=== PATIENT | female | born 1980 | race Caucasian/White ===

== ENCOUNTER 2025-02-22 11:21 | Observation (INO) | payer OTHER, SELFPAY ==
[2025-02-22] VITALS (7 sets, daily range): BP systolic 96–110; BP diastolic 48–62; PULSE 76–93; RESP 16–18; TEMP 36.7–38.2; O2SAT 95–99; BMI 27.4; BMI 34.5
--- NOTE | ~2025-02-22 | CT_ITS ---
CLINICAL HISTORY: pulmonary mass CT chest with contrast Comparison: CR - XR CHEST 2V - 02/22/25 13:22 EST Findings: The heart is normal size. No pericardial effusion. Thoracic aorta normal in size with no aneurysm. Airspace opacity in right middle lobe. Multifocal airspace opacities in the right lower lobe and minimal focal airspace opacity in the lingula. Right hilar adenopathy likely reactive. No pleural effusion or pneumothorax. Thyroid and thoracic esophagus within normal limits. The visualized upper abdomen demonstrate no acute findings. 5 mm hypodense lesion in the liver anteriorly which is too small to be fully characterized. No acute fractures. IMPRESSION: 1. Multifocal airspace opacities in the right lower lobe, airspace opacity in right middle lobe and minimally in the lingula most suggestive of multifocal pneumonia. Follow-up recommended until resolution. 2. Right hilar adenopathy likely reactive. This document has been electronically signed by: Radha Barclay MD on 02/22/2025 18:33:39
--- NOTE | ~2025-02-22 | XR_ITS ---
CLINICAL HISTORY: cough 2 view chest x-ray Comparison: None provided Findings: Normal size heart. There is an approximately 6 cm airspace opacity in right perihilar region/right upper lobe which on the frontal view appears rounded and masslike and less masslike on the lateral view. No pleural effusion or pneumothorax. No acute fracture. IMPRESSION: 1. Airspace opacity in right perihilar region/right upper lobe which may represent pneumonia. However pulmonary mass not excluded. Clinical correlation for pneumonia recommended in either short-term follow-up chest x-ray after appropriate treatment to document complete resolution, or follow-up CT chest with IV contrast should be obtained. This document has been electronically signed by: Radha Barclay MD on 02/22/2025 15:14:28
--- NOTE | 2025-02-22 11:23 | ED.GENADULT ---
HPI - General Adult General Chief complaint: General Medical Stated complaint: fever chills body aches Time Seen by Provider: 02/22/25 11:40 Related Data Home Medications ?Medication ?Instructions ?Recorded ?Confirmed nitrofurantoin 1 cap PO BID 02/22/25 monohydrate/macrocrystals 100 mg capsule Allergies Allergy/AdvReac Type Severity Reaction Status Date / Time No Known Allergies Allergy Verified 02/22/25 11:25 [facility], [facility] Social History Social History Smoked in Last 30 Days: No Use of substances other than those prescribed or required for medical reasons: No Advance Directives: No Advance Directives Information Provided: No Do you have a plan to hurt others: No Plan Physical Exam ED Vital Signs: Vital Signs - 24 hr 02/22/25 11:23 02/22/25 11:46 02/22/25 12:17 Temperature 98.1 F 98.1 F 98.4 F Pulse Rate 83 83 76 Respiratory Rate 18 18 16 Blood Pressure 110/48 L 110/48 L 98/56 L Pulse Oximetry 98 98 98 Oxygen Delivery Method Room Air Room Air Room Air 02/22/25 14:20 Temperature 98.4 F Pulse Rate 76 Respiratory Rate 16 Blood Pressure 104/59 L Pulse Oximetry 97 Oxygen Delivery Method Room Air BMI result Body Mass Index 27.4 Course Course Course Narrative: This is a Rapid Medical Examination (RME) performed by Marilia Mejia PA-C in triage. Full HPI, ROS, assessment and treatment plan per primary provider in the Main ED. Hx: 44 yo F here from for eval of feeling generally unwell. sx of UTI began 6 days ago - saw OBGYN two days later, prescribed macrobid. having fever (TMAX 102.7 last night) chills and myalgias. saw PCP yesterday, had neg covid/flu swabs. seen at today - noted to be hypotensive 89/62 and tachycardic. sent to our ED for further work up. reports discomfort with urinating, no back pain. Plan: labs, UA Reevaluation(s) Reevaluation #1: This is a duplicate note. please see dr. ovalle's completed note regarding patient's visit on 02/22/25. Medications Administered Discontinued Medications Generic Name Dose Route Start Last Admin Trade Name Freq PRN Reason Stop Dose Admin Sodium Chloride 1,000 mls @ 999 mls/hr 02/22/25 12:00 02/22/25 13:57 Ns IVCONT 02/22/25 13:00 Infused .Q1H1M WILL Infusion Sodium Chloride 1,000 mls @ 999 mls/hr 02/22/25 12:00 02/22/25 13:57 Ns IVCONT 02/22/25 13:00 Infused .Q1H1M WILL Infusion Ceftriaxone Sodium 1 gm/ 50 mls @ 100 mls/hr 02/22/25 12:41 02/22/25 13:57 Sodium Chloride IV 02/22/25 13:10 Infused ONCE ONE Infusion Doxycycline Hyclate 100 mg/ 250 mls @ 166.67 mls/hr 02/22/25 13:34 02/22/25 13:52 Sodium Chloride IV 02/22/25 15:03 166.67 mls/hr ONCE ONE Administration Medical Decision Making Lab Data 02/22/25 11:43 02/22/25 11:43 Labs: Lab Results 02/22/25 02/22/25 Range/Units 11:43 12:49 WBC 7.2 (4.8-10.8) X10*3/uL RBC 4.74 (4.20-5.50) X10*6/uL Hgb 14.2 (12.0-16.0) g/dl Hct 42.0 (37.0-47.0) % MCV 88.6 (80.0-98.0) fL MCH 30.0 (27.0-33.0) pg MCHC 33.8 (31.0-35.0) g/dl RDW 12.9 (11.0-16.0) % Plt Count 187 (160-400) X10*3/uL MPV 9.9 (9.4-12.3) fL Immature Gran % (Auto) 0.3 (0.0-0.4) % Neut % (Auto) 83.4 H (45-73) % Lymph % (Auto) 10.2 L (20-40) % [place] % (Auto) 5.7 (2-11) % Eos % (Auto) 0.1 (0-4) % Baso % (Auto) 0.3 (0-2) % Lymph # (Auto) 0.7 L (1.2-4.9) X10*3/uL [place] # (Auto) 0.4 (0.1-1.2) X10*3/uL Eos # (Auto) 0.0 (0.0-0.4) X10*3/uL Baso # (Auto) 0.0 (0.0-0.2) X10*3/uL Abs Immat Gran (auto) 0.02 (0.00-0.03) X10*3/uL Absolute Neuts (auto) 6.0 (2.0-8.3) x10*3/uL Absolute Nucleated RBC 0.000 (0.0-0.012) X10*3/uL Nucleated RBC % (auto) 0.0 (0.0-0.2) /100WBC Sodium 135 (135-145) mmol/L Potassium 3.7 (3.3-5.1) mmol/L Chloride 106 (96-108) mmol/L Carbon Dioxide 20 L (22-29) mmol/L Anion Gap 13 (12-20) BUN 9 (9-16) mg/dL Creatinine 0.86 (0.5-1.4) mg/dL Estim Creat Clear Calc 85.7 Estimated GFR > 60 Random Glucose 105 (60-115) mg/dL Lactic Acid 1.0 (0.5-2.0) mmol/L Calcium 8.9 (8.4-10.2) mg/dL Magnesium 2.2 (1.6-2.6) mg/dL Total Bilirubin 0.4 (0.0-1.0) mg/dL AST 25 (5-31) U/L ALT 18 (0-31) U/L Alkaline Phosphatase 59 (39-117) U/L Total Protein 7.7 (6.5-8.0) g/dL Albumin 4.2 (3.5-5.0) g/dL Urine Color Yellow Urine Appearance Cloudy Urine pH 5.5 (5.0-9.0) Ur Specific [place] 1.015 (1.005-1.025) Urine Protein Trace (Neg-Trace) mg/dL Urine Glucose (UA) Negative (Negative) mg/dL Urine Ketones 15 (Negative) mg/dL Urine Blood Negative (Negative) Urine Nitrite Negative (Negative) Ur Leukocyte Esterase Trace H (Negative) Urine RBC 0-2 (0-2) /HPF Urine WBC 0-5 (0-5) /HPF Ur Squamous Epith Cells 0-2 (0-2) /HPF Urine Bacteria None Seen (None Seen) Hyaline Casts 0-2 (0-2) /LPF Influenza Type A (PCR) NEGATIVE (Negative) Influenza Type B (PCR) NEGATIVE (Negative) RSV RNA Qual (PCR) NEGATIVE (Negative) SARS-CoV-2 RNA (RT-PCR) NEGATIVE (Negative) Discharge Plan Discharge Clinical Impression: Community acquired pneumonia Qualifiers: Laterality: right Lung location: middle lobe of lung Qualified Code(s): J18.9 - Pneumonia, unspecified organism Patient Disposition: Admitted As Inpatient Print Language: Haitian
[2025-02-22 11:49] LABS: Hematocrit 42.0 % (37.0-47.0); Hemoglobin 14.2 g/dl (12.0-16.0); Imm Gran Abs Auto 0.02 X10*3/uL (0.00-0.03); Imm Gran Pct Auto 0.3 % (0.0-0.4); Lymphocytes Absolute Auto 0.7 X10*3/uL (1.2-4.9); MANUAL DIFF FLAG NO; Mean Corpuscular HGB Conc 33.8 g/dl (31.0-35.0); Mean Corpuscular Hemoglobin 30.0 pg (27.0-33.0); Mean Corpuscular Volume 88.6 fL (80.0-98.0); NRBC Abs Auto 0.000 X10*3/uL (0.0-0.012); NRBC Pct Auto 0.0 /100WBC (0.0-0.2); Platelet Count 187 X10*3/uL (160-400); Red Blood Count 4.74 X10*6/uL (4.20-5.50); White Blood Count 7.2 X10*3/uL (4.8-10.8)
--- NOTE | 2025-02-22 11:56 | ED_ITS ---
HPI - General Adult General Chief complaint: General Medical Stated complaint: fever chills body aches Time Seen by Provider: 02/22/25 11:40 Source: patient Mode of arrival: ambulatory Limitations: no limitations History of Present Illness HPI narrative: This is a 44 years old female was referred to us by the urgent care because low blood pressure of the urgent care. Patient has been having UTI symptoms she was started the Macrobid by she has been having a persistent fever and chills. She went to the urgent care the BP was low therefore she was referred to us Onset (ago): day(s) (4) Radiation: non-radiation Severity: moderate Quality: burning Relieving factors: none Exacerbating factors: none Associated symptoms: denies other symptoms Related Data Home Medications ?Medication ?Instructions ?Recorded ?Confirmed nitrofurantoin 1 cap PO BID 02/22/25 monohydrate/macrocrystals 100 mg capsule Allergies Allergy/AdvReac Type Severity Reaction Status Date / Time No Known Allergies Allergy Verified 02/22/25 11:25 Review of Systems 2 Constitutional: Constitutional: Reports no additional constitutional complaints Cardiovascular: Cardiovascular: Reports no additional cardiovascular complaints Musculoskeletal: Musculoskeletal: Reports no additional musculoskeletal complaints [facility] Past Medical History Attestation statement: The following information was validated with the patient. [facility] Narrative: Denies any major medical Medical History (Updated 02/22/25 @ 15:10 by Missy Ridley NP) Anxiety Surgical History (Updated 02/22/25 @ 15:11 by Missy Ridley NP) H/O knee surgery Family History Family History (Updated 02/22/25 @ 15:10 by Missy Ridley NP) Mother Pancreatic cancer Social History Social History Household Members: Spouse Patient Tobacco Use Status: Never used Tobacco Physical Exam ED Exam Exam: No acute distress Vital Signs: Vital Signs - 24 hr 02/22/25 11:23 02/22/25 11:46 02/22/25 12:17 Temperature 98.1 F 98.1 F 98.4 F Pulse Rate 83 83 76 Respiratory Rate 18 18 16 Blood Pressure 110/48 L 110/48 L 98/56 L Pulse Oximetry 98 98 98 Oxygen Delivery Method Room Air Room Air Room Air 02/22/25 14:20 Temperature 98.4 F Pulse Rate 76 Respiratory Rate 16 Blood Pressure 104/59 L Pulse Oximetry 97 Oxygen Delivery Method Room Air BMI result Body Mass Index 27.4 Const General: cooperative Nutritional Appearance: well nourished Orientation/consciousness: patient oriented x3 Limitations: no limitations HENMT Head: Yes normal to inspection General nose exam: Normal external nose present Neck Neck: Yes normal visual inspection Chest Chest palpation & inspection: normal inspection of the chest Resp Effort & Inspection: normal respiratory effort Cardio Jugular venous distension: no JVD GI Inspection: Yes normal to inspection Palpation (GI): Soft to palpation, not firm and nontender Auscultation: normal bowel sounds General: Yes no CVA tenderness Back/Spine/Pelvis Back: no CVA tenderness Skin General skin exam: no rashes or lesions noted and elasticity normal Lesions: no lesions Rashes: no rashes Neuro General: patient oriented x3 Medications Administered Discontinued Medications Generic Name Dose Route Start Last Admin Trade Name Freq PRN Reason Stop Dose Admin Sodium Chloride 1,000 mls @ 999 mls/hr 02/22/25 12:00 02/22/25 13:57 Ns IVCONT 02/22/25 13:00 Infused .Q1H1M WILL Infusion Sodium Chloride 1,000 mls @ 999 mls/hr 02/22/25 12:00 02/22/25 13:57 Ns IVCONT 02/22/25 13:00 Infused .Q1H1M WILL Infusion Ceftriaxone Sodium 1 gm/ 50 mls @ 100 mls/hr 02/22/25 12:41 02/22/25 13:57 Sodium Chloride IV 02/22/25 13:10 Infused ONCE ONE Infusion Doxycycline Hyclate 100 mg/ 250 mls @ 166.67 mls/hr 02/22/25 13:34 02/22/25 13:52 Sodium Chloride IV 02/22/25 15:03 166.67 mls/hr ONCE ONE Administration Medical Decision Making Medical Decision Making MDM Narrative: Patient was sent here by the urgent care because of low blood pressure we will obtain blood work blood culture lactic acid administer IV fluids check the UA again 15:11 the clinical picture is consistent with a right middle lobe pneumonia, she had a fever, she was hypotensive in the urgent care she is better after IV fluids we will administer IV antibiotic started blood culture done Differential Diagnosis Differential Diagnoses: The differential diagnosis associated with the presentation includes UTI/pneumonia/dehydration Admission/Observation Consideration of admission/observation: Escalation of care including admission/observation considered Consult Healthcare Provider Management of the patient was discussed with: Hospitalist Lab Data MDM Lab Attestation statement: I reviewed the patient's lab results. 02/22/25 11:43 02/22/25 11:43 Labs: Lab Results 02/22/25 02/22/25 Range/Units 11:43 12:49 WBC 7.2 (4.8-10.8) X10*3/uL RBC 4.74 (4.20-5.50) X10*6/uL Hgb 14.2 (12.0-16.0) g/dl Hct 42.0 (37.0-47.0) % MCV 88.6 (80.0-98.0) fL MCH 30.0 (27.0-33.0) pg MCHC 33.8 (31.0-35.0) g/dl RDW 12.9 (11.0-16.0) % Plt Count 187 (160-400) X10*3/uL MPV 9.9 (9.4-12.3) fL Immature Gran % (Auto) 0.3 (0.0-0.4) % Neut % (Auto) 83.4 H (45-73) % Lymph % (Auto) 10.2 L (20-40) % [place] % (Auto) 5.7 (2-11) % Eos % (Auto) 0.1 (0-4) % Baso % (Auto) 0.3 (0-2) % Lymph # (Auto) 0.7 L (1.2-4.9) X10*3/uL [place] # (Auto) 0.4 (0.1-1.2) X10*3/uL Eos # (Auto) 0.0 (0.0-0.4) X10*3/uL Baso # (Auto) 0.0 (0.0-0.2) X10*3/uL Abs Immat Gran (auto) 0.02 (0.00-0.03) X10*3/uL Absolute Neuts (auto) 6.0 (2.0-8.3) x10*3/uL Absolute Nucleated RBC 0.000 (0.0-0.012) X10*3/uL Nucleated RBC % (auto) 0.0 (0.0-0.2) /100WBC Sodium 135 (135-145) mmol/L Potassium 3.7 (3.3-5.1) mmol/L Chloride 106 (96-108) mmol/L Carbon Dioxide 20 L (22-29) mmol/L Anion Gap 13 (12-20) BUN 9 (9-16) mg/dL Creatinine 0.86 (0.5-1.4) mg/dL Estim Creat Clear Calc 85.7 Estimated GFR > 60 Random Glucose 105 (60-115) mg/dL Lactic Acid 1.0 (0.5-2.0) mmol/L Calcium 8.9 (8.4-10.2) mg/dL Magnesium 2.2 (1.6-2.6) mg/dL Total Bilirubin 0.4 (0.0-1.0) mg/dL AST 25 (5-31) U/L ALT 18 (0-31) U/L Alkaline Phosphatase 59 (39-117) U/L Total Protein 7.7 (6.5-8.0) g/dL Albumin 4.2 (3.5-5.0) g/dL Urine Color Yellow Urine Appearance Cloudy Urine pH 5.5 (5.0-9.0) Ur Specific [place] 1.015 (1.005-1.025) Urine Protein Trace (Neg-Trace) mg/dL Urine Glucose (UA) Negative (Negative) mg/dL Urine Ketones 15 (Negative) mg/dL Urine Blood Negative (Negative) Urine Nitrite Negative (Negative) Ur Leukocyte Esterase Trace H (Negative) Urine RBC 0-2 (0-2) /HPF Urine WBC 0-5 (0-5) /HPF Ur Squamous Epith Cells 0-2 (0-2) /HPF Urine Bacteria None Seen (None Seen) Hyaline Casts 0-2 (0-2) /LPF Influenza Type A (PCR) NEGATIVE (Negative) Influenza Type B (PCR) NEGATIVE (Negative) RSV RNA Qual (PCR) NEGATIVE (Negative) SARS-CoV-2 RNA (RT-PCR) NEGATIVE (Negative) Independent Interpretation I performed an independent interpretation of an: Plain X-Ray Interpretation: Chest x-ray was reviewed interpreted by me as a right middle lobe pneumonia Radiology Impression Discussion of test interpretation with radiology: I have reviewed the radiologist's reading. Radiologist Impression: I have reviewed the chest x-ray reading Prescription Management I considered prescription management with: Antibiotic Critical Care Time Critical Care Time Critical Care Time: Yes Total Critical Care Time: 60 Attestation: EKG of the patient, getting report from the urgent care, hypotension Discharge Plan Discharge Clinical Impression: Community acquired pneumonia Qualifiers: Laterality: right Lung location: middle lobe of lung Qualified Code(s): J18.9 - Pneumonia, unspecified organism Hypotension Qualifiers: Hypotension type: unspecified hypotension type Qualified Code(s): I95.9 - Hypotension, unspecified Patient Disposition: Admitted As Inpatient Print Language: Grenadian
[2025-02-22 12:22] LABS: Alanine Aminotransferase 18 U/L (0-31); Albumin Level 4.2 g/dL (3.5-5.0); Alkaline Phosphatase 59 U/L (39-117); Anion Gap 13 (12-20); Aspartate Amino Transferase 25 U/L (5-31); Blood Urea Nitrogen 9 mg/dL (9-16); Calcium 8.9 mg/dL (8.4-10.2); Carbon Dioxide 20 mmol/L (22-29); Chloride 106 mmol/L (96-108); Creatinine Clr Calc Pharmacy 85.7; Estimated Glomerular Filt Rate > 60; Magnesium 2.2 mg/dL (1.6-2.6); Potassium 3.7 mmol/L (3.3-5.1); Sodium 135 mmol/L (135-145); Total Protein 7.7 g/dL (6.5-8.0)
[2025-02-22 12:26] LABS: Resp Syncy Virus RNA Qual PCR NEGATIVE (Negative); SARS COV2 PCR INHOUSE NEGATIVE (Negative)
[2025-02-22 12:57] LABS: Appearance Urine Cloudy; Glucose Urine UA Negative (Negative); PH 5.5 (5.0-9.0); Specific Gravity - Urine 1.015 (1.005-1.025); UMIC TRIGGER UACC YES
--- NOTE | 2025-02-22 14:40 | PM.IMHP ---
History of Present Illness Date of Service: 02/22/25 Chief Complaint: fever 44 year old women presenting to the ED from urgent care. She had seen her PCP earlier in the week and had been started on Macrobid for UTI. She reported over the last 2-3 days she has had chills, subjective fevers up to 102 and cough with sputum of which the collar she could not describe. She denied chest pain, shortness of breath, nausea, vomiting, diarrhea, recent travel, sick contacts. She reported that her daughter had a very brief episode of illness possibly viral. She reports being very independent without significant health problems. Review of Systems Review of Systems: Denies any recent fever chills or decrease in appetite respiratory see HPI cardiovascular denied chest pain gastrointestinal denies any dysphagia abdominal pain nausea vomiting or diarrhea genitourinary denies any dysuria frequency or hematuria musculoskeletal denies any joint pain or swelling neuropsych denies any weakness or seizures all other systems reviewed are negative [facility] Medical History (Updated 02/22/25 @ 15:10 by Missy Ridley NP) Anxiety Family History (Updated 02/22/25 @ 15:10 by Missy Ridley NP) Mother Pancreatic cancer Surgical History (Updated 02/22/25 @ 15:11 by Missy Ridley NP) H/O knee surgery Social History (Updated 02/22/25 @ 15:11 by Missy Ridley NP) Household Members: Spouse Housing: House Do you presently have visiting nurse or other home services: No Patient Tobacco Use Status: Never used Tobacco Smoked in Last 30 Days: No Use of substances other than those prescribed or required for medical reasons: No Currently Displaying Signs/Symptoms of Drug Intoxication Withdrawal: No Do you feel safe in your current relationship?: Yes Advance Directives: No Advance Directives Information Provided: No Do you have a plan to hurt others: No Plan Patient : No : No Poor oral hygiene: No Meds Allergies Allergy/AdvReac Type Severity Reaction Status Date / Time No Known Allergies Allergy Verified 02/22/25 11:25 Active Medications: Current Medications Acetaminophen (Acetaminophen 325 Mg Tablet) 650 mg PO Q6H PRN PRN Reason: Pain, Mild 1-3,fever,headache Calcium Carbonate (Calcium Carbonate 750 Mg Tab.Chew) 750 mg PO Q4H PRN PRN Reason: Heartburn Enoxaparin Sodium (Enoxaparin Sodium 40 Mg/0.4 Ml Syringe) 40 mg SUBCUT Q24H [facility] Doxycycline Hyclate 100 mg/ (Sodium Chloride) 250 mls @ 166.67 mls/hr IV ONCE ONE Stop: 02/22/25 15:03 Last Admin: 02/22/25 13:52 Dose: 166.67 mls/hr Ceftriaxone Sodium 1 gm/ (Sodium Chloride) 50 mls @ 100 mls/hr IV Q24H [facility] Azithromycin 500 mg/ Sodium (Chloride) 250 mls @ 125 mls/hr IV Q24H [facility] Magnesium Hydroxide (Milk Of Magnesia 30 Ml Oral.Susp) 30 ml PO DAILY PRN PRN Reason: Constipation Melatonin (Melatonin 3 Mg Tablet) 6 mg PO BEDTIME PRN PRN Reason: Insomnia Ondansetron HCl (Ondansetron Hcl 4 Mg/2 Ml Vial) 4 mg IVPUSH Q8H PRN PRN Reason: Nausea and Vomiting Sodium Chloride (0.9 % Sodium Chloride Flush 3 Ml Syringe) 3 ml IVFLUSH QSHIFT [facility] Home Medications ?Medication ?Instructions ?Recorded ?Confirmed ?Last Taken ?Type drospirenone 3 mg-ethinyl 1 tab PO BEDTIME 02/22/25 02/22/25 02/21/25 History estradiol 0.02 mg tablet (Isabel (28)) sertraline 50 mg tablet 50 mg PO BEDTIME 02/22/25 02/22/25 02/21/25 History Physical Exam Vital Signs and Narrative: Vital Signs: Last Vital Signs Temp 98.4 F 02/22/25 14:20 Pulse 76 02/22/25 14:20 Resp 16 02/22/25 14:20 BP 104/59 L 02/22/25 14:20 Pulse Ox 97 02/22/25 14:20 O2 Del Method Room Air 02/22/25 14:20 BMI result Body Mass Index 27.4 Appearing in no acute distress head is normocephalic atraumatic eyes pupils are PERRLA sclera is anicteric mouth throat mucous membranes are intact and moist neck is supple no lymphadenopathy, no JVD noted lung sounds are clear to auscultation heart regular rate rhythm, clear S1, S2 positive bowel sounds, abdomen is soft, nontender neuro patient is alert x3, no focal deficits Results Labs 02/23/25 05:51 02/23/25 05:51 Labs: Laboratory Results - last 24 hr 02/22/25 02/22/25 11:43 12:49 MCV 88.6 MCH 30.0 MCHC 33.8 RDW 12.9 Plt Count 187 MPV 9.9 Immature Gran % (Auto) 0.3 Neut % (Auto) 83.4 H Lymph % (Auto) 10.2 L [place] % (Auto) 5.7 Eos % (Auto) 0.1 Baso % (Auto) 0.3 Lymph # (Auto) 0.7 L [place] # (Auto) 0.4 Eos # (Auto) 0.0 Baso # (Auto) 0.0 Abs Immat Gran (auto) 0.02 Absolute Neuts (auto) 6.0 Absolute Nucleated RBC 0.000 Nucleated RBC % (auto) 0.0 Anion Gap 13 Estim Creat Clear Calc 85.7 Estimated GFR > 60 Random Glucose 105 Lactic Acid 1.0 Calcium 8.9 Magnesium 2.2 Total Bilirubin 0.4 AST 25 ALT 18 Alkaline Phosphatase 59 Total Protein 7.7 Albumin 4.2 Urine Color Yellow Urine Appearance Cloudy Urine pH 5.5 Ur Specific [place] 1.015 Urine Protein Trace Urine Glucose (UA) Negative Urine Ketones 15 Urine Blood Negative Urine Nitrite Negative Ur Leukocyte Esterase Trace H Urine RBC 0-2 Urine WBC 0-5 Ur Squamous Epith Cells 0-2 Urine Bacteria None Seen Hyaline Casts 0-2 Influenza Type A (PCR) NEGATIVE Influenza Type B (PCR) NEGATIVE RSV RNA Qual (PCR) NEGATIVE SARS-CoV-2 RNA (RT-PCR) NEGATIVE Assessment and Plan (1) Hypotension: Qualifiers: Hypotension type: unspecified hypotension type Qualified Code(s): I95.9 - Hypotension, unspecified Status: Acute Plan 44-year-old woman placed on observation for consolidation noted on x-ray with upper respiratory type symptoms Pulmonary consolidation, possible pneumonia No fever or leukocytosis but patient reports subjective fevers up to 102 and urgent care provider stated that blood pressure systolic was 89 Chest x-ray showed large consolidation, chest CT with IV contrast pending Started Rocephin and azithromycin May use supplemental oxygen to keep oxygen saturation greater than 91% patient becomes hypoxic check RPP antitussins as needed Low BP readings not on antihypertensives monitor DVT prophylaxis with Lovenox Full code Quality Stroke Does the patient have a stroke diagnosis?: No VTE Prior VTE?: No VTE Risk Level:: Medical - moderate - high VTE Device Contraindication: N/A - Device Ordered VTE Drug Contraindication: N/A - Med Ordered
--- NOTE | 2025-02-22 14:48 | HO.NURTONUR ---
44 year old female presented to ED from for hypotension, chills, fevers. Had been started on Macrobid at beginning of the week for UTI symptoms, since resolved. Multiple negative Flu/COVID swabs. Pt alert and oriented, ambulates independently. Breathing equal and unlabored. Skin warm and well perfused. PIV to left wrist. VSS. Afebrile.
--- NOTE | 2025-02-22 15:36 | PHA.MEDREC ---
Addendum entered by Edyta De Paz RPh 02/22/25 15:50: Reviewed by pharmacist Original Note: Pharmacy Consult ? Medication Reconciliation Pharmacy has completed the medication reconciliation. Confirmed medication list with patient and against pharmacy claims. Patient states that for their Nitrofurantoin (Macrobid) antibiotic regimen, they took a dose this morning, but prior to that had not taken a dose since Monday. Patient claims that final day of their Macrobid regimen is tomorrow (02/23).
--- NOTE | 2025-02-22 16:48 | PC.NURSE ---
Pt stating that IV Azithro was burning . IV site checked. +Blood return. Rate slowed, pt reports improvement of symptoms.
[2025-02-22] MEDS: iohexoL 350 MG/ML 100 ML INFUS..BTL IV (17:28)
[2025-02-22] MEDS: Lactated Ringers 1,000 ML 80 ML IVCONT (18:06)
[2025-02-22] MEDS: guaiFENesin DM 100/10/5 ML 5 ML SYRUP PO (21:00)
[2025-02-23 03:44] VITALS: BP 100/57; PULSE 78; RESP 16; TEMP 36.7; O2SAT 93
[2025-02-23] MEDS: Lactated Ringers 1,000 ML 80 ML IVCONT (06:16)
[2025-02-23 06:30] LABS: Hematocrit 33.6 % (37.0-47.0); Hemoglobin 11.4 g/dl (12.0-16.0); Mean Corpuscular HGB Conc 33.9 g/dl (31.0-35.0); Mean Corpuscular Hemoglobin 29.7 pg (27.0-33.0); Mean Corpuscular Volume 87.5 fL (80.0-98.0); NRBC Abs Auto 0.000 X10*3/uL (0.0-0.012); NRBC Pct Auto 0.0 /100WBC (0.0-0.2); Platelet Count 157 X10*3/uL (160-400); Red Blood Count 3.84 X10*6/uL (4.20-5.50); White Blood Count 5.1 X10*3/uL (4.8-10.8)
[2025-02-23 06:48] LABS: Anion Gap 9 (12-20); Blood Urea Nitrogen 5 mg/dL (9-16); Calcium 7.7 mg/dL (8.4-10.2); Carbon Dioxide 20 mmol/L (22-29); Chloride 108 mmol/L (96-108); Creatinine Clr Calc Pharmacy 127.0; Estimated Glomerular Filt Rate > 60; Potassium 3.4 mmol/L (3.3-5.1); Sodium 134 mmol/L (135-145)
[2025-02-23 07:56] VITALS: BP 99/63; PULSE 77; RESP 16; TEMP 36.3; O2SAT 93
--- NOTE | 2025-02-23 09:40 | P.DS_ITS ---
DS: Providers Provider Date of Service: 02/23/25 Date of admission: 02/22/25 15:50 Date of discharge: 02/23/25 Primary care physician: Summer Del Rio DO DS: Diagnosis Discharge Diagnosis (1) Hypotension: Status: Acute DS: Summary Hospital Course Hospital Course: from initial hpi: 44 year old women presenting to the ED from urgent care. She had seen her PCP earlier in the week and had been started on Macrobid for UTI. She reported over the last 2-3 days she has had chills, subjective fevers up to 102 and cough with sputum of which the collar she could not describe. She denied chest pain, shortness of breath, nausea, vomiting, diarrhea, recent travel, sick contacts. She reported that her daughter had a very brief episode of illness possibly viral. She reports being very independent without significant health problems. hospital course: Patient was admitted for multifocal pneumonia. Was given ceftriaxone azithromycin to cover Gram-positive such as strep pneumonia and Gram-negative such as Klebsiella as well as atypicals. symptoms significantly improved. She will be discharged on 7 more days of Ceftin azithromycin. Respiratory viral panel still pending and should be followed up as well as cultures and antibio tics adjusted as necessary. Follow up CT chest in 1 month is recommended to ensure clearance. Time Attestation Discharge Coordination Time (in mins): 37 Quality: Safe Use of Opioids Does Pt have an Active Cancer Diagnosis on the Problem List?: No Quality: Stroke Does the patient have a stroke diagnosis?: No Physical Exam Exam: Exam: General: AO X 3, no acute distress Resp: CTA bilateral, no accessory muscles used CVS: S1,S2,RRR GI: soft, non tender, non distended Neuro: motor grossly intact, alert Psych: appropriate affect, appropriate insight Vital Signs: Vital Signs: Last Vital Signs Temp 97.3 F 02/23/25 07:56 Pulse 77 02/23/25 07:56 Resp 16 02/23/25 07:56 BP 99/63 02/23/25 07:56 Pulse Ox 93 02/23/25 07:56 O2 Del Method Room Air 02/23/25 07:56 BMI result Body Mass Index 34.5 DS: Data Data Completed and Pending Labs on day of discharge: Laboratory Results - last 24 hr 02/22/25 02/22/25 02/23/25 11:43 12:49 05:51 WBC 7.2 5.1 RBC 4.74 3.84 L Hgb 14.2 11.4 L Hct 42.0 33.6 L MCV 88.6 87.5 MCH 30.0 29.7 MCHC 33.8 33.9 RDW 12.9 13.0 Plt Count 187 157 L MPV 9.9 10.5 Immature Gran % (Auto) 0.3 Neut % (Auto) 83.4 H Lymph % (Auto) 10.2 L [place] % (Auto) 5.7 Eos % (Auto) 0.1 Baso % (Auto) 0.3 Lymph # (Auto) 0.7 L [place] # (Auto) 0.4 Eos # (Auto) 0.0 Baso # (Auto) 0.0 Abs Immat Gran (auto) 0.02 Absolute Neuts (auto) 6.0 Absolute Nucleated RBC 0.000 0.000 Nucleated RBC % (auto) 0.0 0.0 Sodium 135 134 L Potassium 3.7 3.4 Chloride 106 108 Carbon Dioxide 20 L 20 L Anion Gap 13 9 L BUN 9 5 L Creatinine 0.86 0.65 Estim Creat Clear Calc 85.7 127.0 Estimated GFR > 60 > 60 Random Glucose 105 102 Lactic Acid 1.0 Calcium 8.9 7.7 L D Magnesium 2.2 Total Bilirubin 0.4 AST 25 ALT 18 Alkaline Phosphatase 59 Total Protein 7.7 Albumin 4.2 Urine Color Yellow Urine Appearance Cloudy Urine pH 5.5 Ur Specific [place] 1.015 Urine Protein Trace Urine Glucose (UA) Negative Urine Ketones 15 Urine Blood Negative Urine Nitrite Negative Ur Leukocyte Esterase Trace H Urine RBC 0-2 Urine WBC 0-5 Ur Squamous Epith Cells 0-2 Urine Bacteria None Seen Hyaline Casts 0-2 Influenza Type A (PCR) NEGATIVE Influenza Type B (PCR) NEGATIVE RSV RNA Qual (PCR) NEGATIVE SARS-CoV-2 RNA (RT-PCR) NEGATIVE Discharge Plan Discharge Anticipated Discharge Date/Time: 02/23/25 09:37 Patient Disposition: Home, Self-Care Discharge Diagnosis: pneumonia Referrals: Summer Song DO [Primary Care Provider, Osteopathic Medicine] - 1 Week Discharge Medications: New cefuroxime axetil 500 mg tablet 500 mg PO BID Qty: 14 0RF azithromycin 500 mg tablet 500 mg PO DAILY 7 Days Qty: 7 0RF Continued sertraline 50 mg tablet 50 mg PO BEDTIME drospirenone-ethinyl estradiol [Isabel (28)] 3-0.02 mg tablet 1 tab PO BEDTIME Discontinued nitrofurantoin monohyd/m-cryst 100 mg capsule 1 cap PO BID Discharge Orders: Discharge Order (Routine); Ordered 02/23/25 Ordered By: Ming Greene Diet: Advance to usual diet Activity on Discharge: As tolerated Stand Alone Forms: Patient Portal Discharge page Print Language: [place] Other Ambulatory Orders: CT chest wo IV con (Routine) Timeframe: 1 Month Facility: [facility] - Location: CT Scan Ordered By: Ming Greene Care Plan Goals: recovery Health Concerns: pneumonia Plan of Treatment: 7 days ceftin and azitrho follow up ct chest in 1 month Assessment: see above
[2025-02-23 09:41] LABS: Chlamydia pneumoniae PCR Not Detected (Not Detect.); Coronavirus 229E PCR Not Detected (Not Detect.); Coronavirus HKU1 PCR Not Detected (Not Detect.); Coronavirus NL63 PCR Not Detected (Not Detect.); Coronavirus OC43 PCR Not Detected (Not Detect.); Influenza A H1 PCR Not Detected (Not Detect.); Influenza A H1-2009 PCR Not Detected (Not Detect.); Influenza A H3 PCR Not Detected (Not Detect.); RSV PCR Not Detected (Not Detect.); Rhino/Enterovirus PCR Not Detected (Not Detect.); SARS-CoV-2 PCR Not Detected (Not Detect.)
== END 2025-02-23 10:19 | disposition home or self-care (01) ==
LOC: HO.ED 13:41 → HO.EDOVER 15:53 → HO.S3 16:03
PROVIDERS: Physician Assistant Medical; Admitting Provider Nurse Practitioner Acute Care; Emergency Provider Emergency Medicine; PCP Internal Medicine; Visit Provider Internal Medicine
DX: J18.9 Pneumonia, unspecified organism (principal); I95.9 Hypotension, unspecified; F41.9 Anxiety disorder, unspecified; R51.9 Headache, unspecified; R05.9 Cough, unspecified; Z03.818 Encounter for observation for suspected exposure to other biological agents ruled out
CPT/HCPCS: 36415; 71046; 71260; 80048; 80053; 81001; 83605; 83735; 85025; 85027; 87040; 87633; 87637; 96361; 96365; 96366; 96372; 99221; 99285; J0456; J0696; J1271; J1650; J7120; Q9967

== ENCOUNTER → 2025-02-22 11:55 | Outpatient (BNV) | payer OTHER, SELFPAY | PROVIDERS: Admitting Provider Nurse Practitioner Acute Care; Emergency Provider Emergency Medicine; PCP Internal Medicine; Visit Provider Specialist | DX: R91.8 Other nonspecific abnormal finding of lung field (principal); R59.0 Localized enlarged lymph nodes | CPT/HCPCS: 71046; 71260 ==

== ENCOUNTER → 2025-02-22 15:50 | Outpatient (BNV) | payer OTHER, SELFPAY | PROVIDERS: Admitting Provider Nurse Practitioner Acute Care; Emergency Provider Emergency Medicine; PCP Internal Medicine; Visit Provider Internal Medicine | DX: J18.9 Pneumonia, unspecified organism (principal); I95.9 Hypotension, unspecified | CPT/HCPCS: 99222; 99239 ==